=== PATIENT | female | born 1950 | race American Indian/Alaskan Native ===

== ENCOUNTER 2016-11-23 13:49 | Emergency (ER) | payer MEDICARE ==
[2016-11-23 14:01] VITALS: BP 156/99
[2016-11-23] MEDS ORDERED: NORCO 5/325 PO ONE (14:13)
[2016-11-23] MEDS ORDERED: BOOSTRIX IM ONE (14:13)
[2016-11-23] MEDS ORDERED: ANTIBIOTIC OINT TP ONE (14:17)
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
== END 2016-11-23 16:02 | disposition home or self-care (01) ==
LOC: ED 13:49
DX: T21.22XA Burn of second degree of abdominal wall, initial encounter (principal); E11.9 Type 2 diabetes mellitus without complications; I10 Essential (primary) hypertension; M19.90 Unspecified osteoarthritis, unspecified site; Z88.2 Allergy status to sulfonamides; X10.0XXA Contact with hot drinks, initial encounter; Y93.89 Activity, other specified; Y99.9 Unspecified external cause status; Y92.89 Other specified places as the place of occurrence of the external cause
CPT/HCPCS: 90471; 90715

== ENCOUNTER 2017-04-11 22:36 | Emergency (ER) | payer MEDICARE ==
[2017-04-12] MEDS ORDERED: DUONEB *Not for PRN Use IH ONE ×2 (04:34→04:50)
[2017-04-12] MEDS: DUONEB *Not for PRN Use IH ONE ×2 (04:41→06:30)
[2017-04-12] MEDS ORDERED: NORCO 5/325 ONE (04:50)
--- NOTE | 2017-04-12 05:56 | Emergency Department Report ---
Chief Complaint: Extremity Injury, Lower Stated Complaint: LT LEG PAIN Time Seen by Provider: 04/12/17 05:43 - HPI History of Present Illness: 66-year-old female past medical history obesity, chronic back pain, left hip replacement, HIV presents with complaint of acute on chronic lower back pain and worsening cough for 1 week. Patient audibly coughing loudly states it is slightly productive. Also complaining of pain and swelling in her left lower extremity which is getting progressively worse. - ROS Review of Systems: 1 week of worsening cough, left lower extremity pain and swelling - Exam Vital Signs: Vital Signs 04/12/17 00:26 Temperature 98.3 F Pulse Rate 79 Respiratory 16 Rate Blood Pressure 178/95 O2 Sat by Pulse 100 Oximetry Physical Exam: Some rhonchi on auscultation of lung maldonado MSE screening note: Focused history and physical exam performed. Due to findings the following was ordered: Screening Assessment/Plan/Differential Dx: Worsening cough, left lower extremity pain 1- This initial assessment/diagnostic orders/clinical plan/ treatment(s) is/are subject to change based on pt's health status, clinical progression and re- assessment by fellow clinical providers in the ED. Further treatment and workup at subsequent clinical provers discretion. Patient/guardians urged not to elope from ED as their condition may be serious if not clinically assessed and managed. 2-performed initial screening exam during hospital down time, was unable to chart and/or directly order labs through [facility]. Initially done on paper charting 3-chest x-ray, CBC, BMP, left lower extremity Doppler 4-pt received 1 dose of DuoNeb and a [place] ED Disposition for MSE Condition: Stable Referrals: JOHN CRAWFORD MD [Primary Care Provider] - 3-5 Days
--- NOTE | 2017-04-12 07:04 | XRay Report ---
Chest 2 views: History: Worsening cough. Findings: Normal cardiomediastinal silhouette the trachea is midline. No consolidation, pneumothorax or pleural effusion. Impression: No acute cardiopulmonary findings.
[2017-04-12] MEDS ORDERED: ZOFRAN IM ONE (11:00)
[2017-04-12 11:01] LABS: Anion Gap 19 mmol/L; BUN/Creatinine Ratio 13; Blood Urea Nitrogen 13 mg/dL (7-17); Calcium 9.4 mg/dL (8.4-10.2); Carbon Dioxide 26 mmol/L (22-30); Chloride 102.7 mmol/L (98-107); Glucose 111 mg/dL (65-100); Potassium 4.5 mmol/L (3.6-5.0); Sodium 143 mmol/L (137-145)
[2017-04-12] MEDS ORDERED: DILAUDID IM ONE (11:01)
--- NOTE | 2017-04-12 11:06 | Emergency Department Report ---
ED Extremity Problem HPI - General Chief complaint: Extremity Injury, Lower Stated complaint: LT LEG PAIN Time Seen by Provider: 04/12/17 05:43 Source: patient Mode of arrival: Ambulatory Limitations: No Limitations - History of Present Illness Initial comments: Patient is 66 years old female with history of chronic back pain came today with left thigh pain starting on one week. Grab the pain for pain increases movement improve his remaining still. Patient is also complaining of back pain which is chronic in nature. She denied any bowel or bladder incontinence. No focal motor deficit or sensory deficit in the lower extremity. MD Complaint: extremity pain -: Gradual Location: left, other (thigh) History of Same: Yes Radiation: none Improves with: immobilization Worsens with: weight bearing - Related Data Home Medications Medication Instructions Recorded Confirmed Last Taken ALPRAZolam [Xanax TAB] 2 mg PO BID PRN 05/05/15 05/05/15 Unknown Abacavir/Dolutegravir/Lamivudi 1 tab PO QDAY 05/05/15 05/05/15 05/05/15 [Triumeq (Nf)] Amlodipine Besylate [Norvasc] 5 mg PO QDAY 05/05/15 05/05/15 05/05/15 Carisoprodol [Soma] 350 mg PO BID 05/05/15 05/05/15 05/05/15 Losartan/Hydrochlorothiazide 1 tab PO QDAY 05/05/15 05/05/15 05/05/15 [Hyzaar 50-12.5 TAB] Previous Rx's Medication Instructions Recorded Last Taken Type HYDROcodone/APAP 7.5-325 [[place] 1 each PO Q8HR PRN #15 tablet 05/05/15 Unknown Rx 7.5/325] Acetaminophen/Codeine [Tylenol 1 tab PO TID PRN #20 tab 11/23/16 Unknown Rx /Codeine # 3 tab] Bacitracin Zinc Oint [Antibiotic 1 applicatio TP BID #1 tube 11/23/16 Unknown Rx Oint] Cephalexin [Keflex] 500 mg PO TID #30 capsule 11/23/16 Unknown Rx Allergies Allergy/AdvReac Type Severity Reaction Status Date / Time Sulfa (Sulfonamide Allergy Itching Verified 05/05/15 16:59 Antibiotics) ED Review of Systems ROS: Stated complaint: LT LEG PAIN Other details as noted in HPI Comment: All other systems reviewed and negative Constitutional: denies: chills, fever ENT: denies: throat pain Respiratory: denies: cough, orthopnea, shortness of breath Cardiovascular: denies: chest pain, palpitations, dyspnea on exertion Gastrointestinal: denies: abdominal pain, nausea, vomiting, hematemesis, hematochezia Musculoskeletal: back pain, myalgia. denies: joint swelling, arthralgia Neurological: denies: headache, weakness, numbness, paresthesias, confusion, abnormal gait ED Past Medical Hx - Past Medical History Previous Medical History?: Yes Hx Hypertension: Yes Hx Diabetes: Yes Hx Arthritis: Yes Hx HIV: Yes - Surgical History Past Surgical History?: Yes Additional Surgical History: hysterectomy. left hip replacement - Social History Smoking Status: Never Smoker - Medications Home Medications: Home Medications Medication Instructions Recorded Confirmed Last Taken Type ALPRAZolam [Xanax TAB] 2 mg PO BID PRN 05/05/15 05/05/15 Unknown History Abacavir/Dolutegravir/Lamivudi 1 tab PO QDAY 05/05/15 05/05/15 05/05/15 History [Triumeq (Nf)] Amlodipine Besylate [Norvasc] 5 mg PO QDAY 05/05/15 05/05/15 05/05/15 History Carisoprodol [Soma] 350 mg PO BID 05/05/15 05/05/15 05/05/15 History HYDROcodone/APAP 7.5-325 [[place] 1 each PO Q8HR PRN #15 tablet 05/05/15 Unknown Rx 7.5/325] Losartan/Hydrochlorothiazide 1 tab PO QDAY 05/05/15 05/05/15 05/05/15 History [Hyzaar 50-12.5 TAB] Acetaminophen/Codeine [Tylenol 1 tab PO TID PRN #20 tab 11/23/16 Unknown Rx /Codeine # 3 tab] Bacitracin Zinc Oint [Antibiotic 1 applicatio TP BID #1 tube 11/23/16 Unknown Rx Oint] Cephalexin [Keflex] 500 mg PO TID #30 capsule 11/23/16 Unknown Rx ED Physical Exam - General Limitations: No Limitations General appearance: alert, in no apparent distress - Head Head exam: Present: atraumatic, normocephalic - Eye Eye exam: Present: normal appearance - ENT ENT exam: Present: normal exam, mucous membranes moist - Neck Neck exam: Present: normal inspection, full ROM. Absent: tenderness, meningismus, lymphadenopathy, thyromegaly - Respiratory Respiratory exam: Present: normal lung sounds bilaterally. Absent: wheezes, rales - Cardiovascular Cardiovascular Exam: Present: regular rate, normal rhythm, normal heart sounds - GI/Abdominal GI/Abdominal exam: Present: soft, normal bowel sounds. Absent: distended, tenderness, guarding, rebound, rigid, mass, bruit, pulsatile mass, hernia - Extremities Exam Extremities exam: Present: normal inspection, full ROM, normal capillary refill - Back Exam Back exam: Present: normal inspection. Absent: CVA tenderness (R), CVA tenderness (L), muscle spasm, paraspinal tenderness, vertebral tenderness - Neurological Exam Neurological exam: Present: alert, oriented X3, CN II-XII intact, normal gait - Skin Skin exam: Present: warm, intact, normal color. Absent: dry ED Course Vital Signs 04/12/17 04/12/17 00:26 04:40 Temperature 98.3 F Pulse Rate 79 Pulse Rate [ 102 H Anterior Bilateral Throughout] Respiratory 16 Rate Respiratory 20 Rate [Anterior Bilateral Throughout] Blood Pressure 178/95 O2 Sat by Pulse 100 Oximetry - Reevaluation(s) Reevaluation #1: 04/12/17 11:05 Patient stated that she is feeling better. ED Medical Decision Making - Lab Data Result diagrams: 04/12/17 05:00 - Radiology Data Radiology results: report reviewed Left lower extremity ultrasound is negative for DVT, chest x-ray unremarkable. Critical care attestation.: If time is entered above; I have spent that time in minutes in the direct care of this critically ill patient, excluding procedure time. ED Disposition Clinical Impression: Pain of left lower extremity, Sciatica Disposition: DC-01 TO HOME OR SELFCARE Is pt being admited?: No Condition: Stable Instructions: Lumbar Radiculopathy (ED) Referrals: JOHN CRAWFORD MD [Primary Care Provider] - 3-5 Days
[2017-04-12 11:38] LABS: Hematocrit 37.6 % (30.3-42.9); Hemoglobin 12.2 gm/dl (10.1-14.3); Red Blood Count 4.29 M/mm3 (3.65-5.03)
[2017-04-12 11:39] LABS: Mean Corpuscular HGB Conc 33 % (30-34); Mean Corpuscular Hemoglobin 29 pg (28-32); Mean Corpuscular Volume 88 fl (79-97); Platelet Count 254 K/mm3 (140-440); Red Cell Distribution Width 16.8 % (13.2-15.2)
[2017-04-12 12:23] VITALS: BP 152/77
== END 2017-04-12 12:21 | disposition home or self-care (01) ==
LOC: ED 22:36
DX: M54.30 Sciatica, unspecified side (principal); M79.652 Pain in left thigh; I10 Essential (primary) hypertension; E11.9 Type 2 diabetes mellitus without complications
CPT/HCPCS: 36415; 71020; 80048; 82140; 82805; 85027; 93971; 94640; 96372; 99284; J1170; J2405

== ENCOUNTER 2017-06-22 17:05 | Emergency (ER) | payer MEDICARE | END 2017-06-22 18:02 | disposition left against medical advice (07) | LOC: ED 17:05 | DX: M54.5 Low back pain (principal); Z53.21 Procedure and treatment not carried out due to patient leaving prior to being seen by health care provider ==

== ENCOUNTER 2018-12-07 02:28 | Inpatient (IN) | payer MEDICARE ==
[2018-12-07] MEDS ORDERED: NACL 0.9% 1000 ML 1,000 ML IV ONE (02:45)
--- NOTE | 2018-12-07 02:53 | Emergency Department Report ---
ED Psych HPI - General Stated Complaint: MH EVAL/SUICIDAL Time Seen by Provider: 12/07/18 02:35 Source: patient, EMS Limitations: Altered Mental Status - History of Present Illness Initial Comments: Patient was brought to the ED after taking a handful (15-20) of trazodone 50mg pills that she had taken about 4 hours prior to arrival. Patient took the pill as a suicidal gesture, stating she just didn't want to be here anymore. history of depression. Was brought to ER via EMS, somnolent, but answers yes or no questions. MD Complaint: feels depressed - Related Data Home Medications Medication Instructions Recorded Confirmed Last Taken ALPRAZolam [Xanax TAB] 2 mg PO BID PRN 05/05/15 11/05/17 Unknown Abacavir/Dolutegravir/Lamivudi 1 tab PO QDAY 05/05/15 11/05/17 05/05/15 [Triumeq (Nf)] Amlodipine Besylate [Norvasc] 5 mg PO QDAY 05/05/15 11/05/17 05/05/15 Carisoprodol [Soma] 350 mg PO BID 05/05/15 11/05/17 05/05/15 Losartan/Hydrochlorothiazide 1 tab PO QDAY 05/05/15 11/05/17 05/05/15 [Hyzaar 50-12.5 TAB] Previous Rx's Medication Instructions Recorded Last Taken Type Aspirin [Aspirin EC] 325 mg PO DAILY #30 tablet. 11/05/17 Unknown Rx AtorvaSTATin [Lipitor] 40 mg PO QHS #30 tab 11/05/17 Unknown Rx Allergies Allergy/AdvReac Type Severity Reaction Status Date / Time Sulfa (Sulfonamide Allergy Itching Verified 05/05/15 16:59 Antibiotics) ED Review of Systems ROS: Stated complaint: MH EVAL/SUICIDAL Other details as noted in HPI Comment: All other systems reviewed and negative Eyes: denies: eye pain ENT: denies: ear pain Skin: denies: rash Neurological: denies: headache Psychiatric: anxiety, depression, suicidal thoughts ED Past Medical Hx - Past Medical History Hx Hypertension: Yes Hx Heart Attack/AMI: No Hx Congestive Heart Failure: No Hx Diabetes: Yes Hx Deep Vein Thrombosis: No Hx Liver Disease: No Hx Arthritis: Yes Hx HIV: Yes - Surgical History Hx Coronary Stent: No Hx Open Heart Surgery: No Hx Pacemaker: No Hx Internal Defibrillator: No Hx Cholecystectomy: No Hx Appendectomy: No Hx Breast Surgery: No Additional Surgical History: hysterectomy. left hip replacement - Social History Smoking Status: Never Smoker - Medications Home Medications: Home Medications Medication Instructions Recorded Confirmed Last Taken Type ALPRAZolam [Xanax TAB] 2 mg PO BID PRN 05/05/15 11/05/17 Unknown History Abacavir/Dolutegravir/Lamivudi 1 tab PO QDAY 05/05/15 11/05/17 05/05/15 History [Triumeq (Nf)] Amlodipine Besylate [Norvasc] 5 mg PO QDAY 05/05/15 11/05/17 05/05/15 History Carisoprodol [Soma] 350 mg PO BID 05/05/15 11/05/17 05/05/15 History Losartan/Hydrochlorothiazide 1 tab PO QDAY 05/05/15 11/05/17 05/05/15 History [Hyzaar 50-12.5 TAB] Aspirin [Aspirin EC] 325 mg PO DAILY #30 tablet. 11/05/17 Unknown Rx AtorvaSTATin [Lipitor] 40 mg PO QHS #30 tab 11/05/17 Unknown Rx ED Physical Exam - General Limitations: No Limitations General appearance: alert, lethargic, in distress - Head Head exam: Present: atraumatic, normocephalic - Eye Eye exam: Present: normal appearance, PERRL, EOMI Pupils: Present: normal accommodation - ENT ENT exam: Present: normal exam, normal orophraynx - Neck Neck exam: Present: normal inspection - GI/Abdominal GI/Abdominal exam: Present: soft ED Course Vital Signs 12/07/18 12/07/18 12/07/18 02:50 02:56 04:17 Temperature 98.1 F 98.3 F Pulse Rate 64 62 Respiratory 17 22 16 Rate Blood Pressure 118/56 Blood Pressure 118/85 [Right] O2 Sat by Pulse 97 98 Oximetry 12/07/18 04:21 Temperature Pulse Rate 72 Respiratory 17 Rate Blood Pressure 115/56 Blood Pressure [Right] O2 Sat by Pulse 95 Oximetry ED Medical Decision Making - Lab Data Result diagrams: 12/07/18 02:57 12/07/18 02:57 - EKG Data -: EKG Interpreted by Me EKG shows normal: sinus rhythm - EKG Data When compared to previous EKG there are: changes noted Interpretation: other (ectopic atrial, rate 68) Critical care attestation.: If time is entered above; I have spent that time in minutes in the direct care o f this critically ill patient, excluding procedure time. ED Disposition Clinical Impression: Suicidal behavior with attempted self-injury, Overdose of trazodone Disposition: OP ADMIT IP TO THIS HOSP Is pt being admited?: Yes Does the pt Need Aspirin: No Condition: Stable Referrals: ANDREW ELIZABETH [Referring] - 3-5 Days
[2018-12-07 03:14] LABS: Basophils % (Auto) 0.6 % (0.0-1.8); Eosinophils # (Auto) 0.1 K/mm3 (0.0-0.4); Eosinophils % (Auto) 1.4 % (0.0-4.3); Hematocrit 35.2 % (30.3-42.9); Hemoglobin 11.7 gm/dl (10.1-14.3); Lymphocytes # (Auto) 2.6 K/mm3 (1.2-5.4); Lymphocytes % (Auto) 36.9 % (13.4-35.0); Mean Corpuscular HGB Conc 33 % (30-34); Mean Corpuscular Volume 92 fl (79-97); Monocytes # (Auto) 0.5 K/mm3 (0.0-0.8); Platelet Count 238 K/mm3 (140-440); Red Blood Count 3.83 M/mm3 (3.65-5.03); Red Cell Distribution Width 17.2 % (13.2-15.2)
[2018-12-07 03:37] LABS: Albumin 3.6 g/dL (3.9-5); Calcium 8.2 mg/dL (8.4-10.2)
[2018-12-07 04:22] LABS: Amphetamine Screen,Urine PRESUMPTIVE NEGATIVE; Benzodiazepines Screen,Urine PRESUMPTIVE NEGATIVE; Cannabinoid Screen,Urine PRESUMPTIVE NEGATIVE; Cocaine Screen,Urine PRESUMPTIVE NEGATIVE; Methadone Screen,Urine PRESUMPTIVE NEGATIVE; Opiate Screen,Urine PRESUMPTIVE NEGATIVE
[2018-12-07 04:24] LABS: Bacteria,Urine 1+ /HPF (Negative); Bilirubin,Urine NEG (Negative); Blood,Urine NEG (Negative); Color,Urine Straw (Yellow); Hyaline Casts,Urine 17 /LPF; Mucus,Urine FEW /HPF; Protein,Urine <15 mg/dL mg/dL (Negative); Urobilinogen,Urine < 2.0 mg/dL (<2.0)
--- NOTE | 2018-12-07 05:26 | History and Physical Report ---
<KIET OCONNELL - Last Filed: 12/07/18 06:37> History of Present Illness Date of examination: 12/07/18 Date of admission: 12/07/2018 Chief complaint: Suicidal attempt History of present illness: Patient is a 68-year-old female with PMHx of DM type II, hypertension, HIV infection, obesity, depression who was brought to the ER by EMS for taking (15- 20) 50mg of Trazodone, about 4 hours prior to arrival. Per EMS pt took the pills in a suicidal attempt, she states that she didn't want to be here anymore per family. On arrival to the ER patient was somnolent, but was able to answers to questions. On admission patient was somnolent but easily arousable, she was able to provide medical history and list her medications. When asked if she wanted to commit suicide, she reply no, psychiatry was consulted for evaluation, pt was placed in 1013 and admitted for further monitoring. Past History Past Medical History: diabetes, hypertension, other (obesity, depression) Past Surgical History: hysterectomy, total hip replacement Social history: other (denies cigarette smoking) Family history: no significant family history Medications and Allergies Allergies Allergy/AdvReac Type Severity Reaction Status Date / Time Sulfa (Sulfonamide Allergy Itching Verified 05/05/15 16:59 Antibiotics) Home Medications Medication Instructions Recorded Confirmed Last Taken Type Abacavir/Dolutegravir/Lamivudi 1 tab PO QDAY 05/05/15 12/08/18 12/07/18 History [Triumeq (Nf)] Abacavir/Dolutegravir/Lamivudi 1 tab PO DAILY 12/07/18 12/09/18 12/08/18 History [Triumeq 600-50-300 mg Tablet] Losartan-Hctz 100-25 mg Tab 100 mg PO DAILY 12/07/18 12/07/18 1 Day Ago History ~12/06/18 glipiZIDE [Glucotrol] 5 mg PO QHS 12/07/18 12/07/18 1 Day Ago History ~12/06/18 AtorvaSTATin [Lipitor] 40 mg PO QHS tablet 12/10/18 Unknown Rx amLODIPine [Norvasc] 10 mg PO DAILY #30 tab 12/10/18 Unknown Rx Review of Systems All systems: negative Exam - Constitutional Vitals: Temp Pulse Resp BP Pulse Ox 98.3 F 72 17 115/56 95 12/07/18 02:56 12/07/18 04:21 12/07/18 04:21 12/07/18 04:21 12/07/18 04:21 General appearance: Present: no acute distress - EENT Eyes: Present: EOM intact ENT: hearing intact - Neck Neck: Present: normal ROM - Respiratory Respiratory effort: normal Respiratory: bilateral: CTA - Cardiovascular Heart Sounds: Present: S1 & S2 - Extremities Extremities: no ischemia, No edema Peripheral Pulses: within normal limits - Abdominal General gastrointestinal: Present: non-tender, non-distended Female genitourinary: Present: deferred - Rectal Rectal Exam: deferred - Integumentary Integumentary: Present: warm, dry - Musculoskeletal Musculoskeletal: strength equal bilaterally - Psychiatric Psychiatric: cooperative - Neurologic Neurologic: moves all extremities Results - Labs CBC & Chem 7: 12/07/18 02:57 12/07/18 02:57 Labs: Laboratory Last Values WBC 7.1 K/mm3 (4.5-11.0) 12/07/18 02:57 RBC 3.83 M/mm3 (3.65-5.03) 12/07/18 02:57 Hgb 11.7 gm/dl (10.1-14.3) 12/07/18 02:57 Hct 35.2 % (30.3-42.9) 12/07/18 02:57 MCV 92 fl (79-97) 12/07/18 02:57 MCH 31 pg (28-32) 12/07/18 02:57 MCHC 33 % (30-34) 12/07/18 02:57 RDW 17.2 % (13.2-15.2) H 12/07/18 02:57 Plt Count 238 K/mm3 (140-440) 12/07/18 02:57 Lymph % (Auto) 36.9 % (13.4-35.0) H 12/07/18 02:57 [place] % (Auto) 7.0 % (0.0-7.3) 12/07/18 02:57 Eos % (Auto) 1.4 % (0.0-4.3) 12/07/18 02:57 Baso % (Auto) 0.6 % (0.0-1.8) 12/07/18 02:57 Lymph # 2.6 K/mm3 (1.2-5.4) 12/07/18 02:57 [place] # 0.5 K/mm3 (0.0-0.8) 12/07/18 02:57 Eos # 0.1 K/mm3 (0.0-0.4) 12/07/18 02:57 Baso # 0.0 K/mm3 (0.0-0.1) 12/07/18 02:57 Seg Neutrophils % 54.1 % (40.0-70.0) 12/07/18 02:57 Seg Neutrophils # 3.8 K/mm3 (1.8-7.7) 12/07/18 02:57 Sodium 137 mmol/L (137-145) 12/07/18 02:57 Potassium 3.3 mmol/L (3.6-5.0) L 12/07/18 02:57 Chloride 98.3 mmol/L (98-107) 12/07/18 02:57 Carbon Dioxide 27 mmol/L (22-30) 12/07/18 02:57 15 mmol/L 12/07/18 02:57 BUN 16 mg/dL (7-17) 12/07/18 02:57 1.3 mg/dL (0.7-1.2) H 12/07/18 02:57 Estimated GFR 49 ml/min 12/07/18 02:57 12 % 12/07/18 02:57 Glucose 119 mg/dL (65-100) H 12/07/18 02:57 Calcium 8.2 mg/dL (8.4-10.2) L 12/07/18 02:57 0.20 mg/dL (0.1-1.2) 12/07/18 02:57 AST 20 units/L (5-40) 12/07/18 02:57 ALT 18 units/L (7-56) 12/07/18 02:57 78 units/L (35-129) 12/07/18 02:57 6.3 g/dL (6.3-8.2) 12/07/18 02:57 3.6 g/dL (3.9-5) L 12/07/18 02:57 1.3 % 12/07/18 02:57 Straw (Yellow) 12/07/18 03:56 Clear (Clear) 12/07/18 03:56 5.0 (5.0-7.0) 12/07/18 03:56 Ur Specific [place] 1.006 (1.003-1.030) 12/07/18 03:56 <15 mg/dl mg/dL (Negative) 12/07/18 03:56 Neg mg/dL (Negative) 12/07/18 03:56 Neg mg/dL (Negative) 12/07/18 03:56 Neg (Negative) 12/07/18 03:56 Neg (Negative) 12/07/18 03:56 Neg (Negative) 12/07/18 03:56 < 2.0 mg/dL (<2.0) 12/07/18 03:56 Ur Leukocyte Esterase Neg (Negative) 12/07/18 03:56 1.0 /HPF (0.0-6.0) 12/07/18 03:56 3.0 /HPF (0.0-6.0) 12/07/18 03:56 U Epithel Cells (Auto) 1.0 /HPF (0-13.0) 12/07/18 03:56 1+ /HPF (Negative) 12/07/18 03:56 Hyaline Casts 17 /LPF 12/07/18 03:56 Few /HPF 12/07/18 03:56 Salicylates < 0.3 mg/dL (2.8-20.0) L 12/07/18 02:57 Presumptive negative 12/07/18 03:56 Presumptive negative 12/07/18 03:56 Acetaminophen < 5.0 ug/mL (10.0-30.0) L 12/07/18 02:57 Ur Barbiturates Screen Presumptive negative 12/07/18 03:56 Ur Phencyclidine Scrn Presumptive negative 12/07/18 03:56 Ur Amphetamines Screen Presumptive negative 12/07/18 03:56 U Benzodiazepines Scrn Presumptive negative 12/07/18 03:56 [place] 0.1 mmol/L (0.0-1.2) 12/07/18 02:57 Presumptive negative 12/07/18 03:56 U Marijuana (THC) Screen Presumptive negative 12/07/18 03:56 Disclamer 12/07/18 03:56 Plasma/Serum Alcohol 0.17 % (0-0.07) H 12/07/18 02:57 Assessment and Plan Assessment and plan: 1. Suicidal attempt 2. Hypokalemia 3. Major depression 4. HIV infection (on HAART, viral load, CD4 unknown) 5. Control DM type II 6. Hypertension 7. Obesity Plan: Patient is admitted for suicidal attempt Continue one-on-one monitoring Psych consult for evaluation Glycemic management per protocol Further plan per hospital course and psychiatry recommendations Advance Directives: Yes VTE prophylaxis?: Chemical Plan of care discussed with patient/family: Yes <RIP AGUAYO - Last Filed: 12/20/18 18:59> History of Present Illness Date of admission: 12/07/18 04:58 Exam - Constitutional Vitals: Temp Pulse Resp BP Pulse Ox 98.0 F 78 20 145/73 95 12/10/18 12:27 12/10/18 14:22 12/10/18 12:27 12/10/18 14:22 12/10/18 12:27 Results - Labs CBC & Chem 7: 12/09/18 04:33 12/10/18 09:02 Labs: Laboratory Last Values WBC 5.9 K/mm3 (4.5-11.0) 12/09/18 04:33 RBC 3.70 M/mm3 (3.65-5.03) 12/09/18 04:33 Hgb 11.3 gm/dl (10.1-14.3) 12/09/18 04:33 Hct 34.0 % (30.3-42.9) 12/09/18 04:33 MCV 92 fl (79-97) 12/09/18 04:33 MCH 31 pg (28-32) 12/09/18 04:33 MCHC 33 % (30-34) 12/09/18 04:33 RDW 17.2 % (13.2-15.2) H 12/09/18 04:33 Plt Count 228 K/mm3 (140-440) 12/09/18 04:33 Lymph % (Auto) 37.8 % (13.4-35.0) H 12/09/18 04:33 Henry % (Auto) 7.3 % (0.0-7.3) 12/09/18 04:33 Eos % (Auto) 1.5 % (0.0-4.3) 12/09/18 04:33 Baso % (Auto) 0.2 % (0.0-1.8) 12/09/18 04:33 Lymph # 2.2 K/mm3 (1.2-5.4) 12/09/18 04:33 [place] # 0.4 K/mm3 (0.0-0.8) 12/09/18 04:33 Eos # 0.1 K/mm3 (0.0-0.4) 12/09/18 04:33 Baso # 0.0 K/mm3 (0.0-0.1) 12/09/18 04:33 Seg Neutrophils % 53.2 % (40.0-70.0) 12/09/18 04:33 Seg Neutrophils # 3.1 K/mm3 (1.8-7.7) 12/09/18 04:33 Sodium 142 mmol/L (137-145) 12/10/18 09:02 Potassium 3.9 mmol/L (3.6-5.0) 12/10/18 09:02 Chloride 101.7 mmol/L (98-107) 12/10/18 09:02 Carbon Dioxide 29 mmol/L (22-30) 12/10/18 09:02 15 mmol/L 12/10/18 09:02 BUN 11 mg/dL (7-17) 12/10/18 09:02 1.0 mg/dL (0.7-1.2) 12/10/18 09:02 Estimated GFR > 60 ml/min 12/10/18 09:02 11 % 12/10/18 09:02 Glucose 109 mg/dL (65-100) H 12/10/18 09:02 POC Glucose 116 (70-105) H 12/10/18 11:39 Calcium 9.5 mg/dL (8.4-10.2) 12/10/18 09:02 Phosphorus 3.80 mg/dL (2.5-4.5) 12/10/18 09:02 Magnesium 1.80 mg/dL (1.7-2.3) 12/10/18 09:02 0.20 mg/dL (0.1-1.2) 12/07/18 02:57 AST 20 units/L (5-40) 12/07/18 02:57 ALT 18 units/L (7-56) 12/07/18 02:57 78 units/L (35-129) 12/07/18 02:57 6.3 g/dL (6.3-8.2) 12/07/18 02:57 3.6 g/dL (3.9-5) L 12/07/18 02:57 1.3 % 12/07/18 02:57 Straw (Yellow) 12/07/18 03:56 Clear (Clear) 12/07/18 03:56 5.0 (5.0-7.0) 12/07/18 03:56 Ur Specific [place] 1.006 (1.003-1.030) 12/07/18 03:56 <15 mg/dl mg/dL (Negative) 12/07/18 03:56 Neg mg/dL (Negative) 12/07/18 03:56 Neg mg/dL (Negative) 12/07/18 03:56 Neg (Negative) 12/07/18 03:56 Neg (Negative) 12/07/18 03:56 Neg (Negative) 12/07/18 03:56 < 2.0 mg/dL (<2.0) 12/07/18 03:56 Ur Leukocyte Esterase Neg (Negative) 12/07/18 03:56 1.0 /HPF (0.0-6.0) 12/07/18 03:56 3.0 /HPF (0.0-6.0) 12/07/18 03:56 U Epithel Cells (Auto) 1.0 /HPF (0-13.0) 12/07/18 03:56 1+ /HPF (Negative) 12/07/18 03:56 Hyaline Casts 17 /LPF 12/07/18 03:56 Few /HPF 12/07/18 03:56 Salicylates < 0.3 mg/dL (2.8-20.0) L 12/07/18 02:57 Presumptive negative 12/07/18 03:56 Presumptive negative 12/07/18 03:56 Acetaminophen < 5.0 ug/mL (10.0-30.0) L 12/07/18 02:57 Ur Barbiturates Screen Presumptive negative 12/07/18 03:56 Ur Phencyclidine Scrn Presumptive negative 07/13/19 03:56 Ur Amphetamines Screen Presumptive negative 12/07/18 03:56 U Benzodiazepines Scrn Presumptive negative 12/07/18 03:56 [place] 0.1 mmol/L (0.0-1.2) 12/07/18 02:57 Presumptive negative 12/07/18 03:56 U Marijuana (THC) Screen Presumptive negative 12/07/18 03:56 Disclamer 12/07/18 03:56 Plasma/Serum Alcohol 0.17 % (0-0.07) H 12/07/18 02:57 Assessment and Plan Assessment and plan: I personally discussed the patient with the JUDGE'S CLERK-C, I agree with the above documentations.
[2018-12-07] MEDS ORDERED: TYLENOL PO PRN (05:28)
[2018-12-07] MEDS ORDERED: REGLAN IV PRN (05:28)
[2018-12-07] MEDS ORDERED: MILK OF MAGNESIA PO PRN (05:28)
[2018-12-07] MEDS ORDERED: SODIUM CHLORIDE FLUSH SYRINGE 10 ML IV PRN (05:28)
[2018-12-07] MEDS ORDERED: ZOFRAN IV PRN (05:28)
[2018-12-07] MEDS ORDERED: D50W (25GM) Syringe IV PRN (06:55)
[2018-12-07] MEDS: HumuLIN R SUB-Q SCH ×3 (08:00→16:53)
--- NOTE | 2018-12-07 09:08 | Event Note ---
Date: 12/07/18 This is a follow-up from an admission earlier this morning. Chart reviewed. We will continue plan as outlined in H&P.
[2018-12-07] MEDS: SODIUM CHLORIDE FLUSH SYRINGE 10 ML IV SCH ×2 (13:49→22:01)
--- NOTE | 2018-12-07 18:53 | Consultation ---
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 She states her daughter found her with a mouthful of pills. She denies any history of mental health treatment by a psychiatrist or therapist. She denies a history of suicidal ideation or attempt but states that she has been referred to a psychiatrist but was never evaluated. She is presc ribed trazodone by her PCP for anxiety/insomnia. She reports stressors of needing money to pay probation. She was diagnosed with HIV 3 years ago and says this bothers her often. "I have good days and bad days." She states that she has been depressed for some time. She admits being intoxicated at the time of her attempt. She denies use of drugs or regular/ daily alcohol use but does not provide any detail regarding her consumption. UDS is negative, BAL=0.17.] Medications and Allergies Allergies Allergy/AdvReac Type Severity Reaction Status Date / Time Sulfa (Sulfonamide Allergy Itching Verified 05/05/15 16:59 Antibiotics) Home Medications Medication Instructions Recorded Confirmed Last Taken Type Abacavir/Dolutegravir/Lamivudi 1 tab PO QDAY 05/05/15 12/07/18 12/07/18 History [Triumeq (Nf)] Amlodipine Besylate [Norvasc] 5 mg PO QDAY 05/05/15 12/07/18 1 Day Ago History ~12/06/18 AtorvaSTATin [Lipitor] 40 mg PO QHS #30 tab 11/05/17 1 Day Ago Rx ~12/06/18 Abacavir/Dolutegravir/Lamivudi 1 PO DAILY 12/07/18 12/07/18 History [Triumeq 600-50-300 mg Tablet] Losartan-Hctz 100-25 mg Tab 100 mg PO DAILY 12/07/18 12/07/18 1 Day Ago History ~12/06/18 glipiZIDE [Glucotrol] 5 mg PO QHS 12/07/18 12/07/18 1 Day Ago History ~12/06/18 Active Meds: Active Medications Acetaminophen (Tylenol) 650 mg PO Q4H PRN PRN Reason: Pain MILD(1-3)/Fever >100.5/BLUE Dextrose (D50w (25gm) Syringe) 50 ml IV PRN PRN PRN Reason: Hypoglycemia Insulin Human Regular (Humulin R) 0 units SUB-Q ACHS DEQUAN; Protocol Last Admin: 12/07/18 16:53 Dose: Not Given Documented by: Magnesium Hydroxide (Milk Of Magnesia) 30 ml PO Q4H PRN PRN Reason: Constipation Metoclopramide HCl (Reglan) 10 mg IV Q6H PRN PRN Reason: Nausea And Vomiting Ondansetron HCl (Zofran) 4 mg IV Q8H PRN PRN Reason: Nausea And Vomiting Sodium Chloride (Sodium Chloride Flush Syringe 10 Ml) 10 ml IV BID [facility] Last Admin: 12/07/18 13:49 Dose: 10 ml Documented by: Sodium Chloride (Sodium Chloride Flush Syringe 10 Ml) 10 ml IV PRN PRN PRN Reason: LINE FLUSH Past psychiatric history - Past Medical History Past Medical History: HIV/AIDS - past Psychiatric treatment and history psychiatric treatment history: trazodone prescribed for anxiety/insomnia no ongoing psychiatric care no previous attempts - Social History Social history: lives with family (daughter, son in law, and grandkids) Mental Status Exam - Vital signs Last Vital Signs Temp 98.6 F 12/07/18 17:52 Pulse 83 12/07/18 17:52 Resp 22 12/07/18 17:52 BP 154/63 12/07/18 17:52 Pulse Ox 96 12/07/18 17:52 - Exam Orientation: time, place, person Affect: depressed Mood: congruent with affect Thought content: other (suicide attempt, remorseful. no HI) Thought Process: Intact Perceptions: none Speech: normal rate and pattern Concentration: focused Motor activity: normal Level of consciousness: alert Memory: Intact Sleep Symptoms: Difficulty Falling Asleep Appetite: decreased Interaction: guarded Results Result Diagrams: 12/07/18 02:57 12/07/18 02:57 Abnormal lab results 12/07/18 12/07/18 12/07/18 Range/Units 02:57 02:57 02:57 RDW 17.2 H (13.2-15.2) % Lymph % (Auto) 36.9 H (13.4-35.0) % Potassium 3.3 L (3.6-5.0) mmol/L Creatinine 1.3 H (0.7-1.2) mg/dL Glucose 119 H (65-100) mg/dL POC Glucose (70-105) Calcium 8.2 L (8.4-10.2) mg/dL Albumin 3.6 L (3.9-5) g/dL Salicylates < 0.3 L (2.8-20.0) mg/dL Acetaminophen (10.0-30.0) ug/mL Plasma/Serum Alcohol (0-0.07) % 12/07/18 12/07/18 12/07/18 Range/Units 02:57 02:57 12:20 RDW (13.2-15.2) % Lymph % (Auto) (13.4-35.0) % Potassium (3.6-5.0) mmol/L Creatinine (0.7-1.2) mg/dL Glucose (65-100) mg/dL POC Glucose 120 H (70-105) Calcium (8.4-10.2) mg/dL Albumin (3.9-5) g/dL Salicylates (2.8-20.0) mg/dL Acetaminophen < 5.0 L (10.0-30.0) ug/mL Plasma/Serum Alcohol 0.17 H (0-0.07) % All other labs normal. Assessment and Plan Assessment and plan: Impression: suicide attempt via overdose on - trazodone 50mg major depressive disorder, severe, without psychotic features anxiety disorder unspecified BAL of 0.17 at time of SA denies daily use of alcohol r/o alcohol use d/o Recommendations: hold meds for mental health we discussed standard of care for MDD and standard of care following SA, to include inpatient psychiatric treatment dispo: continue 1013 and transfer to inpatient psych when medically cleared staffed with Dr. Perez
[2018-12-07] MEDS ORDERED: ABACAVIR PO SCH ×2 (21:15)
[2018-12-07] MEDS ORDERED: LAMIVUDI PO SCH ×2 (21:15)
[2018-12-07] MEDS ORDERED: DOLUTEGRAVIR PO SCH ×2 (21:15)
[2018-12-07] MEDS: NORVASC PO SCH (21:57)
[2018-12-07] MEDS: COZAAR PO SCH (22:00)
[2018-12-07] MEDS ORDERED: K-DUR PO ONE (22:00)
[2018-12-08] MEDS: HumuLIN R SUB-Q SCH ×5 (01:12→22:01)
[2018-12-08] MEDS: NORVASC PO SCH (09:27)
[2018-12-08] MEDS: COZAAR PO SCH (09:27)
[2018-12-08] MEDS: HCTZ PO SCH (09:27)
[2018-12-08] MEDS: SODIUM CHLORIDE FLUSH SYRINGE 10 ML IV SCH ×2 (09:28→21:56)
--- NOTE | 2018-12-08 11:55 | Progress Note ---
Assessment and Plan Assessment and plan: Suicide attempt. Continue per psychiatry. Overdose on 15-20 trazodone 50mg. Continue 1013 and transfer to inpatient psych Hypokalemia. Repleted potassium. Follow BMP. Major depression. HIV. Diabetes mellitus type 2. Accu-Cheks and sliding scale insulin. Hypertension. Continue medications. Obesity. Patient will be counseled on diet, exercise and lifestyle modifications. History Interval history: No new issues overnight. Hospitalist Physical - Constitutional Vitals: Temp Pulse Resp BP Pulse Ox 98.2 F 62 18 165/75 100 12/08/18 08:39 12/08/18 09:27 12/08/18 08:39 12/08/18 09:27 12/08/18 08:39 General appearance: Present: no acute distress - EENT Eyes: Present: PERRL, EOM intact ENT: hearing intact, clear oral mucosa, dentition normal - Neck Neck: Present: supple, normal ROM - Respiratory Respiratory effort: normal Respiratory: bilateral: CTA - Cardiovascular Rhythm: regular Heart Sounds: Present: S1 & S2. Absent: gallop, rub - Extremities Extremities: no ischemia, No edema, Full ROM - Abdominal General gastrointestinal: soft, non-tender, non-distended, normal bowel sounds - Integumentary Integumentary: Present: clear, warm, dry - Neurologic Neurologic: CNII-XII intact, moves all extremities Results - Labs CBC & Chem 7: 12/07/18 02:57 12/07/18 02:57 Labs: Laboratory Last Values WBC 7.1 K/mm3 (4.5-11.0) 12/07/18 02:57 RBC 3.83 M/mm3 (3.65-5.03) 12/07/18 02:57 Hgb 11.7 gm/dl (10.1-14.3) 12/07/18 02:57 Hct 35.2 % (30.3-42.9) 12/07/18 02:57 MCV 92 fl (79-97) 12/07/18 02:57 MCH 31 pg (28-32) 12/07/18 02:57 MCHC 33 % (30-34) 12/07/18 02:57 RDW 17.2 % (13.2-15.2) H 12/07/18 02:57 Plt Count 238 K/mm3 (140-440) 12/07/18 02:57 Lymph % (Auto) 36.9 % (13.4-35.0) H 12/07/18 02:57 [place] % (Auto) 7.0 % (0.0-7.3) 12/07/18 02:57 Eos % (Auto) 1.4 % (0.0-4.3) 12/07/18 02:57 Baso % (Auto) 0.6 % (0.0-1.8) 12/07/18 02:57 Lymph # 2.6 K/mm3 (1.2-5.4) 12/07/18 02:57 [place] # 0.5 K/mm3 (0.0-0.8) 12/07/18 02:57 Eos # 0.1 K/mm3 (0.0-0.4) 12/07/18 02:57 Baso # 0.0 K/mm3 (0.0-0.1) 12/07/18 02:57 Seg Neutrophils % 54.1 % (40.0-70.0) 12/07/18 02:57 Seg Neutrophils # 3.8 K/mm3 (1.8-7.7) 12/07/18 02:57 Sodium 137 mmol/L (137-145) 12/07/18 02:57 Potassium 3.3 mmol/L (3.6-5.0) L 12/07/18 02:57 Chloride 98.3 mmol/L (98-107) 12/07/18 02:57 Carbon Dioxide 27 mmol/L (22-30) 12/07/18 02:57 15 mmol/L 12/07/18 02:57 BUN 16 mg/dL (7-17) 12/07/18 02:57 1.3 mg/dL (0.7-1.2) H 12/07/18 02:57 Estimated GFR 49 ml/min 12/07/18 02:57 12 % 12/07/18 02:57 Glucose 119 mg/dL (65-100) H 12/07/18 02:57 POC Glucose 121 (70-105) H 12/08/18 08:57 Calcium 8.2 mg/dL (8.4-10.2) L 12/07/18 02:57 0.20 mg/dL (0.1-1.2) 12/07/18 02:57 AST 20 units/L (5-40) 12/07/18 02:57 ALT 18 units/L (7-56) 12/07/18 02:57 78 units/L (35-129) 12/07/18 02:57 6.3 g/dL (6.3-8.2) 12/07/18 02:57 3.6 g/dL (3.9-5) L 12/07/18 02:57 1.3 % 12/07/18 02:57 Straw (Yellow) 12/07/18 03:56 Clear (Clear) 12/07/18 03:56 5.0 (5.0-7.0) 12/07/18 03:56 Ur Specific [place] 1.006 (1.003-1.030) 12/07/18 03:56 <15 mg/dl mg/dL (Negative) 12/07/18 03:56 Neg mg/dL (Negative) 12/07/18 03:56 Neg mg/dL (Negative) 12/07/18 03:56 Neg (Negative) 12/07/18 03:56 Neg (Negative) 12/07/18 03:56 Neg (Negative) 12/07/18 03:56 < 2.0 mg/dL (<2.0) 12/07/18 03:56 Ur Leukocyte Esterase Neg (Negative) 12/07/18 03:56 1.0 /HPF (0.0-6.0) 12/07/18 03:56 3.0 /HPF (0.0-6.0) 12/07/18 03:56 U Epithel Cells (Auto) 1.0 /HPF (0-13.0) 12/07/18 03:56 1+ /HPF (Negative) 12/07/18 03:56 Hyaline Casts 17 /LPF 12/07/18 03:56 Few /HPF 12/07/18 03:56 Salicylates < 0.3 mg/dL (2.8-20.0) L 12/07/18 02:57 Presumptive negative 12/07/18 03:56 Presumptive negative 12/07/18 03:56 Acetaminophen < 5.0 ug/mL (10.0-30.0) L 12/07/18 02:57 Ur Barbiturates Screen Presumptive negative 12/07/18 03:56 Ur Phencyclidine Scrn Presumptive negative 12/07/18 03:56 Ur Amphetamines Screen Presumptive negative 12/07/18 03:56 U Benzodiazepines Scrn Presumptive negative 12/07/18 03:56 [place] 0.1 mmol/L (0.0-1.2) 12/07/18 02:57 Presumptive negative 12/07/18 03:56 U Marijuana (THC) Screen Presumptive negative 12/07/18 03:56 Disclamer 12/07/18 03:56 Plasma/Serum Alcohol 0.17 % (0-0.07) H 12/07/18 02:57 Active Medications - Current Medications Current Medications: Generic Name Dose Route Start Last Admin Trade Name Freq PRN Reason Stop Dose Admin Acetaminophen 650 mg 12/07/18 05:28 Tylenol PO Q4H PRN Pain MILD(1-3)/Fever >100.5/BLUE Amlodipine Besylate 5 mg 12/07/18 21:15 12/08/18 09:27 Norvasc PO 5 mg QDAY [facility] Administration Atorvastatin Calcium 40 mg 12/07/18 22:00 12/07/18 21:57 Lipitor PO 40 mg QHS DEQUAN Administration Dextrose 50 ml 12/07/18 06:55 D50w (25gm) Syringe IV PRN PRN Hypoglycemia Hydrochlorothiazide 25 mg 12/08/18 10:00 12/08/18 09:27 Hctz PO 25 mg QDAY DEQUAN Administration Insulin Human Regular 0 units 12/07/18 07:30 12/08/18 08:08 Humulin R SUB-Q Not Given ACHS [facility] Protocol Losartan Potassium 100 mg 12/07/18 21:15 12/08/18 09:27 Cozaar PO 100 mg DAILY DEQUAN Administration Magnesium Hydroxide 30 ml 12/07/18 05:28 Milk Of Magnesia PO Q4H PRN Constipation Metoclopramide HCl 10 mg 12/07/18 05:28 Reglan IV Q6H PRN Nausea And Vomiting Miscellaneous Medication 1 cap 12/07/18 21:15 Abacavir/Dolutegravir/Lamivudi [Triumeq 600-50-300 Mg Tablet] PO DAILY [facility] Ondansetron HCl 4 mg 12/07/18 05:28 Zofran IV Q8H PRN Nausea And Vomiting Sodium Chloride 10 ml 12/07/18 10:00 07/14/19 09:28 Sodium Chloride Flush Syringe 10 Ml IV 10 ml BID DEQUAN Administration Sodium Chloride 10 ml 12/07/18 05:28 Sodium Chloride Flush Syringe 10 Ml IV PRN PRN LINE FLUSH Nutrition/Malnutrition Assess - Dietary Evaluation Nutrition/Malnutrition Findings: Nutrition Notes Start: 12/07/18 12:49 Freq: Status: Active Protocol: Document 12/07/18 12:49 SONIA (Rec: 12/07/18 12:52 SONIA [email or web address] [email or web address]) Nutrition Notes Need for Assessment generated from: MD Order,Education Initial or Follow up Brief Note Current Diagnosis Diabetes,Hypertension Other Pertinent Diagnosis Suicide attempt, Depression, HIV Current Diet Cardiac Labs/Tests K 3.3 Cr 1.3 Pertinent Medications reviewed Subjective/Other Information RD consulted for diet education. BP is WNL and BS range 105-120 since admission. Nutrition Intervention Follow-Up By: 12/11/18 Additional Comments F/U: intakes
[2018-12-08] MEDS: TIVICAY PO SCH (14:26)
[2018-12-08] MEDS: ZIAGEN PO SCH (14:27)
[2018-12-08] MEDS: EPIVIR PO SCH (14:28)
--- NOTE | 2018-12-08 19:18 | Progress Note ---
Subjective - Reason for Consult Consult date: 12/08/18 Reason for consult: follow up - Chief Complaint Chief complaint: Suicidal attempt via overdose "I'm doing much better." 68 year old female brought in by EMS status post suicide attempt via overdose of approx 15-20x Trazodone 50mg. She states her daughter found her with a mouthful of pills. She states she is in good spirits. She talked with her family today and says they are very supportive. She does not think she needs to go to inpatient. She is remorseful of her attempt. She denies SI/HI/AVH. Mental Status Exam - Vital signs Last Vital Signs Temp 98.2 F 12/08/18 16:43 Pulse 65 12/08/18 16:43 Resp 18 12/08/18 16:43 BP 156/52 12/08/18 16:43 Pulse Ox 97 12/08/18 16:43 - Exam Narrative exam: Orientation: time, place, person Affect: depressed Mood: congruent with affect Thought content: other (denies SI, remorseful. no HI) Thought Process: Intact Perceptions: none Speech: normal rate and pattern Concentration: focused Motor activity: normal Level of consciousness: alert Memory: Intact Sleep Symptoms: Difficulty Falling Asleep Appetite: decreased Interaction: guarded Assessment and Plan Impression: suicide attempt via overdose on 15-20 trazodone 50mg major depressive disorder, severe, without psychotic features anxiety disorder unspecified BAL of 0.17 at time of SA denies daily use of alcohol r/o alcohol use d/o Recommendations: hold meds for mental health. consider SSRI we discussed standard of care for MDD and standard of care following SA, to include inpatient psychiatric treatment dispo: continue 1013 and transfer to inpatient psych when medically cleared staffed with Dr. Perez
[2018-12-08] MEDS ORDERED: APRESOLINE IV PRN (23:00)
[2018-12-09 05:58] LABS: Basophils % (Auto) 0.2 % (0.0-1.8); Eosinophils # (Auto) 0.1 K/mm3 (0.0-0.4); Eosinophils % (Auto) 1.5 % (0.0-4.3); Hemoglobin 11.3 gm/dl (10.1-14.3); Lymphocytes # (Auto) 2.2 K/mm3 (1.2-5.4); Lymphocytes % (Auto) 37.8 % (13.4-35.0); Mean Corpuscular HGB Conc 33 % (30-34); Mean Corpuscular Volume 92 fl (79-97); Monocytes # (Auto) 0.4 K/mm3 (0.0-0.8); Monocytes % (Auto) 7.3 % (0.0-7.3); Platelet Count 228 K/mm3 (140-440); Red Cell Distribution Width 17.2 % (13.2-15.2)
[2018-12-09 06:17] LABS: BUN/Creatinine Ratio 10; Blood Urea Nitrogen 8 mg/dL (7-17); Calcium 8.9 mg/dL (8.4-10.2); Hemolysis Index 10
[2018-12-09] MEDS: HumuLIN R SUB-Q SCH ×4 (09:54→21:28)
[2018-12-09] MEDS: COZAAR PO SCH (09:56)
[2018-12-09] MEDS: HCTZ PO SCH (09:56)
[2018-12-09] MEDS: NORVASC PO SCH (09:56)
[2018-12-09] MEDS: EPIVIR PO SCH (09:57)
[2018-12-09] MEDS: ZIAGEN PO SCH (09:57)
[2018-12-09] MEDS: TIVICAY PO SCH (09:57)
[2018-12-09] MEDS: SODIUM CHLORIDE FLUSH SYRINGE 10 ML IV SCH ×2 (10:23→21:29)
--- NOTE | 2018-12-09 10:47 | Progress Note ---
Assessment and Plan Assessment and plan: Suicide attempt. Continue per psychiatry. Overdose on 15-20 trazodone 50mg. Continue 1013 and transfer to inpatient psych per psychiatrist recommendations Hypokalemia. Repleted potassium. Follow BMP. Major depression. HIV. Diabetes mellitus type 2. Accu-Cheks and sliding scale insulin. Hypertension. Continue medications. Obesity. Patient will be counseled on diet, exercise and lifestyle modifications. History Interval history: No new issues overnight. Hospitalist Physical - Constitutional Vitals: Temp Pulse Resp BP Pulse Ox 98.1 F 69 17 139/55 97 12/09/18 04:25 12/09/18 09:56 12/09/18 04:25 12/09/18 09:56 12/09/18 04:25 General appearance: Present: no acute distress - EENT Eyes: Present: PERRL, EOM intact ENT: hearing intact, clear oral mucosa, dentition normal - Neck Neck: Present: supple, normal ROM - Respiratory Respiratory effort: normal Respiratory: bilateral: CTA - Cardiovascular Rhythm: regular Heart Sounds: Present: S1 & S2. Absent: gallop, rub - Extremities Extremities: no ischemia, No edema, Full ROM - Abdominal General gastrointestinal: soft, non-tender, non-distended, normal bowel sounds - Integumentary Integumentary: Present: clear, warm, dry - Neurologic Neurologic: CNII-XII intact, moves all extremities Results - Labs CBC & Chem 7: 12/09/18 04:33 12/09/18 04:33 Labs: Laboratory Last Values WBC 5.9 K/mm3 (4.5-11.0) 12/09/18 04:33 RBC 3.70 M/mm3 (3.65-5.03) 12/09/18 04:33 Hgb 11.3 gm/dl (10.1-14.3) 12/09/18 04:33 Hct 34.0 % (30.3-42.9) 12/09/18 04:33 MCV 92 fl (79-97) 12/09/18 04:33 MCH 31 pg (28-32) 12/09/18 04:33 MCHC 33 % (30-34) 12/09/18 04:33 RDW 17.2 % (13.2-15.2) H 12/09/18 04:33 Plt Count 228 K/mm3 (140-440) 12/09/18 04:33 Lymph % (Auto) 37.8 % (13.4-35.0) H 12/09/18 04:33 [place] % (Auto) 7.3 % (0.0-7.3) 12/09/18 04:33 Eos % (Auto) 1.5 % (0.0-4.3) 12/09/18 04:33 Baso % (Auto) 0.2 % (0.0-1.8) 12/09/18 04:33 Lymph # 2.2 K/mm3 (1.2-5.4) 12/09/18 04:33 [place] # 0.4 K/mm3 (0.0-0.8) 12/09/18 04:33 Eos # 0.1 K/mm3 (0.0-0.4) 12/09/18 04:33 Baso # 0.0 K/mm3 (0.0-0.1) 12/09/18 04:33 Seg Neutrophils % 53.2 % (40.0-70.0) 12/09/18 04:33 Seg Neutrophils # 3.1 K/mm3 (1.8-7.7) 12/09/18 04:33 Sodium 141 mmol/L (137-145) 12/09/18 04:33 Potassium 3.5 mmol/L (3.6-5.0) L 12/09/18 04:33 Chloride 103.1 mmol/L (98-107) 12/09/18 04:33 Carbon Dioxide 28 mmol/L (22-30) 12/09/18 04:33 13 mmol/L 12/09/18 04:33 BUN 8 mg/dL (7-17) 12/09/18 04:33 0.8 mg/dL (0.7-1.2) 12/09/18 04:33 Estimated GFR > 60 ml/min 12/09/18 04:33 10 % 12/09/18 04:33 Glucose 104 mg/dL (65-100) H 12/09/18 04:33 POC Glucose 112 (70-105) H 12/09/18 07:44 Calcium 8.9 mg/dL (8.4-10.2) 12/09/18 04:33 0.20 mg/dL (0.1-1.2) 12/07/18 02:57 AST 20 units/L (5-40) 12/07/18 02:57 ALT 18 units/L (7-56) 12/07/18 02:57 78 units/L (35-129) 12/07/18 02:57 6.3 g/dL (6.3-8.2) 12/07/18 02:57 3.6 g/dL (3.9-5) L 12/07/18 02:57 1.3 % 12/07/18 02:57 Straw (Yellow) 12/07/18 03:56 Clear (Clear) 12/07/18 03:56 5.0 (5.0-7.0) 12/07/18 03:56 Ur Specific [place] 1.006 (1.003-1.030) 12/07/18 03:56 <15 mg/dl mg/dL (Negative) 12/07/18 03:56 Neg mg/dL (Negative) 12/07/18 03:56 Neg mg/dL (Negative) 12/07/18 03:56 Neg (Negative) 12/07/18 03:56 Neg (Negative) 12/07/18 03:56 Neg (Negative) 12/07/18 03:56 < 2.0 mg/dL (<2.0) 12/07/18 03:56 Ur Leukocyte Esterase Neg (Negative) 12/07/18 03:56 1.0 /HPF (0.0-6.0) 12/07/18 03:56 3.0 /HPF (0.0-6.0) 12/07/18 03:56 U Epithel Cells (Auto) 1.0 /HPF (0-13.0) 12/07/18 03:56 1+ /HPF (Negative) 12/07/18 03:56 Hyaline Casts 17 /LPF 12/07/18 03:56 Few /HPF 12/07/18 03:56 Salicylates < 0.3 mg/dL (2.8-20.0) L 12/07/18 02:57 Presumptive negative 12/07/18 03:56 Presumptive negative 12/07/18 03:56 Acetaminophen < 5.0 ug/mL (10.0-30.0) L 12/07/18 02:57 Ur Barbiturates Screen Presumptive negative 12/07/18 03:56 Ur Phencyclidine Scrn Presumptive negative 12/07/18 03:56 Ur Amphetamines Screen Presumptive negative 12/07/18 03:56 U Benzodiazepines Scrn Presumptive negative 12/07/18 03:56 [place] 0.1 mmol/L (0.0-1.2) 12/07/18 02:57 Presumptive negative 12/07/18 03:56 U Marijuana (THC) Screen Presumptive negative 12/07/18 03:56 Disclamer 12/07/18 03:56 Plasma/Serum Alcohol 0.17 % (0-0.07) H 12/07/18 02:57 Active Medications - Current Medications Current Medications: Generic Name Dose Route Start Last Admin Trade Name Freq PRN Reason Stop Dose Admin Abacavir Sulfate 600 mg 12/08/18 14:00 12/09/18 09:57 Ziagen PO 600 mg DAILY DEQUAN Administration Acetaminophen 650 mg 12/07/18 05:28 Tylenol PO Q4H PRN Pain MILD(1-3)/Fever >100.5/BLUE Amlodipine Besylate 5 mg 12/07/18 21:15 12/09/18 09:56 Norvasc PO 5 mg QDAY DEQUAN Administration Atorvastatin Calcium 40 mg 12/07/18 22:00 12/08/18 21:55 Lipitor PO 40 mg QHS DEQUAN Administration Dextrose 50 ml 12/07/18 06:55 D50w (25gm) Syringe IV PRN PRN Hypoglycemia Hydralazine HCl 20 mg 12/08/18 23:00 12/09/18 00:02 Apresoline IV 20 mg Q4H PRN Administration Blood Pressure Hydrochlorothiazide 25 mg 12/08/18 10:00 12/09/18 09:56 Hctz PO 25 mg QDAY DEQUAN Administration Insulin Human Regular 0 units 12/07/18 07:30 12/09/18 09:54 Humulin R SUB-Q Not Given ACHS [facility] Protocol Lamivudine 300 mg 12/08/18 14:00 12/09/18 09:57 Epivir PO 300 mg DAILY DEQUAN Administration Losartan Potassium 100 mg 12/07/18 21:15 12/09/18 09:56 Cozaar PO 100 mg DAILY DEQUAN Administration Magnesium Hydroxide 30 ml 12/07/18 05:28 Milk Of Magnesia PO Q4H PRN Constipation Metoclopramide HCl 10 mg 12/07/18 05:28 Reglan IV Q6H PRN Nausea And Vomiting Ondansetron HCl 4 mg 12/07/18 05:28 Zofran IV Q8H PRN Nausea And Vomiting Sodium Chloride 10 ml 12/07/18 10:00 12/08/18 21:56 Sodium Chloride Flush Syringe 10 Ml IV 10 ml BID DEQUAN Administration Sodium Chloride 10 ml 12/07/18 05:28 12/09/18 00:02 Sodium Chloride Flush Syringe 10 Ml IV 10 ml PRN PRN Administration LINE FLUSH Nutrition/Malnutrition Assess - Dietary Evaluation Nutrition/Malnutrition Findings: Nutrition Notes Start: 12/07/18 12:49 Freq: Status: Active Protocol: Document 12/07/18 12:49 SONIA (Rec: 12/07/18 12:52 SONIA [id number] [email or web address]) Nutrition Notes Need for Assessment generated from: MD Order,Education Initial or Follow up Brief Note Current Diagnosis Diabetes,Hypertension Other Pertinent Diagnosis Suicide attempt, Depression, HIV Current Diet Cardiac Labs/Tests K 3.3 Cr 1.3 Pertinent Medications reviewed Subjective/Other Information RD consulted for diet education. BP is WNL and BS range 105-120 since admission. Nutrition Intervention Follow-Up By: 12/11/18 Additional Comments F/U: intakes
--- NOTE | 2018-12-09 14:02 | Progress Note ---
Subjective - Reason for Consult Consult date: 12/09/18 Reason for consult: Psychiatry Follow-up - Chief Complaint Chief complaint: "I made a big mistake" 68 year old female brought in by EMS status post suicide attempt via overdose of approx 15-20x Trazodone pills. Today the patient was calm and cooperative during the assessment. She stated that she made a ?big mistake" when she ingested several Trazodone pills. She stated that she was "stressed out." She stated, "It's another way I could have handled my situation." She denies SI/HI's and AVH's. Mental Status Exam - Vital signs Last Vital Signs Temp 98.1 F 12/09/18 04:25 Pulse 73 12/09/18 11:00 Resp 17 12/09/18 04:25 BP 139/55 12/09/18 09:56 Pulse Ox 97 12/09/18 04:25 - Exam Narrative exam: MSE: Appearance: calm, cooperative Behavior: regular eye contact Speech: regular rate and tone Mood: "okay" Affect: congruent to mood Thought Process: linear Thought Content: denies SI/HI's and AVH's Motor Activity: ambulatory Cognition: A/O x3 Insight: fair Judgment: fair Assessment and Plan Impression: MDD. Unspecified Anxiety DO. Today the patient was calm and cooperative during the assessment. QTc 470. DDx: R/O Alcohol Use DO Recommendations/Plan: Continue 1013. Discussed risks/benefits of SSRI's. The patient want to wait 24 hours before deciding if she want to take psy medication. Dispo: Once the patient is medically clear, proper dispo will be determined. Will staff with Dr.S Perez
[2018-12-10] MEDS: HumuLIN R SUB-Q SCH ×2 (07:30→11:30)
--- NOTE | 2018-12-10 09:01 | Progress Note ---
Assessment and Plan Assessment and plan: Suicide attempt. Continue per psychiatry. Overdose on - trazodone 50mg. Continue 1013 and transfer to inpatient psych per psychiatrist recommendations Hypokalemia. Repleted potassium. Follow BMP. Major depression. HIV. Diabetes mellitus type 2. Accu-Cheks and sliding scale insulin. Hypertension. Continue medications. Obesity. Patient will be counseled on diet, exercise and lifestyle m odifications. Hospitalist Physical - Constitutional Vitals: Temp Pulse Resp BP Pulse Ox 98.1 F 68 20 155/72 97 12/10/18 08:44 12/10/18 08:44 12/10/18 08:44 12/10/18 08:44 12/10/18 08:44 General appearance: Present: no acute distress Results - Labs CBC & Chem 7: 12/09/18 04:33 12/10/18 09:02 Labs: Laboratory Last Values WBC 5.9 K/mm3 (4.5-11.0) 12/09/18 04:33 RBC 3.70 M/mm3 (3.65-5.03) 12/09/18 04:33 Hgb 11.3 gm/dl (10.1-14.3) 12/09/18 04:33 Hct 34.0 % (30.3-42.9) 12/09/18 04:33 MCV 92 fl (79-97) 12/09/18 04:33 MCH 31 pg (28-32) 12/09/18 04:33 MCHC 33 % (30-34) 12/09/18 04:33 RDW 17.2 % (13.2-15.2) H 12/09/18 04:33 Plt Count 228 K/mm3 (140-440) 12/09/18 04:33 Lymph % (Auto) 37.8 % (13.4-35.0) H 12/09/18 04:33 [place] % (Auto) 7.3 % (0.0-7.3) 12/09/18 04:33 Eos % (Auto) 1.5 % (0.0-4.3) 12/09/18 04:33 Baso % (Auto) 0.2 % (0.0-1.8) 12/09/18 04:33 Lymph # 2.2 K/mm3 (1.2-5.4) 12/09/18 04:33 [place] # 0.4 K/mm3 (0.0-0.8) 12/09/18 04:33 Eos # 0.1 K/mm3 (0.0-0.4) 12/09/18 04:33 Baso # 0.0 K/mm3 (0.0-0.1) 12/09/18 04:33 Seg Neutrophils % 53.2 % (40.0-70.0) 12/09/18 04:33 Seg Neutrophils # 3.1 K/mm3 (1.8-7.7) 12/09/18 04:33 Sodium 141 mmol/L (137-145) 12/09/18 04:33 Potassium 3.5 mmol/L (3.6-5.0) L 12/09/18 04:33 Chloride 103.1 mmol/L (98-107) 12/09/18 04:33 Carbon Dioxide 28 mmol/L (22-30) 12/09/18 04:33 13 mmol/L 12/09/18 04:33 BUN 8 mg/dL (7-17) 12/09/18 04:33 0.8 mg/dL (0.7-1.2) 12/09/18 04:33 Estimated GFR > 60 ml/min 12/09/18 04:33 10 % 12/09/18 04:33 Glucose 104 mg/dL (65-100) H 12/09/18 04:33 POC Glucose 131 (70-105) H 12/10/18 07:57 Calcium 8.9 mg/dL (8.4-10.2) 12/09/18 04:33 0.20 mg/dL (0.1-1.2) 12/07/18 02:57 AST 20 units/L (5-40) 12/07/18 02:57 ALT 18 units/L (7-56) 12/07/18 02:57 78 units/L (35-129) 12/07/18 02:57 6.3 g/dL (6.3-8.2) 12/07/18 02:57 3.6 g/dL (3.9-5) L 12/07/18 02:57 1.3 % 12/07/18 02:57 Straw (Yellow) 12/07/18 03:56 Clear (Clear) 12/07/18 03:56 5.0 (5.0-7.0) 12/07/18 03:56 Ur Specific [place] 1.006 (1.003-1.030) 12/07/18 03:56 <15 mg/dl mg/dL (Negative) 12/07/18 03:56 Neg mg/dL (Negative) 12/07/18 03:56 Neg mg/dL (Negative) 12/07/18 03:56 Neg (Negative) 12/07/18 03:56 Neg (Negative) 12/07/18 03:56 Neg (Negative) 12/07/18 03:56 < 2.0 mg/dL (<2.0) 12/07/18 03:56 Ur Leukocyte Esterase Neg (Negative) 12/07/18 03:56 1.0 /HPF (0.0-6.0) 12/07/18 03:56 3.0 /HPF (0.0-6.0) 12/07/18 03:56 U Epithel Cells (Auto) 1.0 /HPF (0-13.0) 12/07/18 03:56 1+ /HPF (Negative) 12/07/18 03:56 Hyaline Casts 17 /LPF 12/07/18 03:56 Few /HPF 12/07/18 03:56 Salicylates < 0.3 mg/dL (2.8-20.0) L 12/07/18 02:57 Presumptive negative 12/07/18 03:56 Presumptive negative 12/07/18 03:56 Acetaminophen < 5.0 ug/mL (10.0-30.0) L 12/07/18 02:57 Ur Barbiturates Screen Presumptive negative 12/07/18 03:56 Ur Phencyclidine Scrn Presumptive negative 12/07/18 03:56 Ur Amphetamines Screen Presumptive negative 12/07/18 03:56 U Benzodiazepines Scrn Presumptive negative 12/07/18 03:56 [place] 0.1 mmol/L (0.0-1.2) 12/07/18 02:57 Presumptive negative 12/07/18 03:56 U Marijuana (THC) Screen Presumptive negative 12/07/18 03:56 Disclamer 12/07/18 03:56 Plasma/Serum Alcohol 0.17 % (0-0.07) H 12/07/18 02:57 Active Medications - Current Medications Current Medications: Generic Name Dose Route Start Last Admin Trade Name Freq PRN Reason Stop Dose Admin Abacavir Sulfate 600 mg 12/08/18 14:00 12/09/18 09:57 Ziagen PO 600 mg DAILY DEQUAN Administration Acetaminophen 650 mg 12/07/18 05:28 Tylenol PO Q4H PRN Pain MILD(1-3)/Fever >100.5/BLUE Amlodipine Besylate 5 mg 12/07/18 21:15 12/09/18 09:56 Norvasc PO 5 mg QDAY DEQUAN Administration Atorvastatin Calcium 40 mg 12/07/18 22:00 12/09/18 21:28 Lipitor PO 40 mg QHS DEQUAN Administration Dextrose 50 ml 12/07/18 06:55 D50w (25gm) Syringe IV PRN PRN Hypoglycemia Hydralazine HCl 20 mg 12/08/18 23:00 12/09/18 00:02 Apresoline IV 20 mg Q4H PRN Administration Blood Pressure Hydrochlorothiazide 25 mg 12/08/18 10:00 12/09/18 09:56 Hctz PO 25 mg QDAY DEQUAN Administration Insulin Human Regular 0 units 12/07/18 07:30 12/10/18 07:30 Humulin R SUB-Q Not Given ACHS [facility] Protocol Lamivudine 300 mg 12/08/18 14:00 12/09/18 09:57 Epivir PO 300 mg DAILY DEQUAN Administration Losartan Potassium 100 mg 12/07/18 21:15 12/09/18 09:56 Cozaar PO 100 mg DAILY DEQUAN Administration Magnesium Hydroxide 30 ml 12/07/18 05:28 Milk Of Magnesia PO Q4H PRN Constipation Metoclopramide HCl 10 mg 12/07/18 05:28 Reglan IV Q6H PRN Nausea And Vomiting Ondansetron HCl 4 mg 12/07/18 05:28 Zofran IV Q8H PRN Nausea And Vomiting Sodium Chloride 10 ml 12/07/18 10:00 12/09/18 21:29 Sodium Chloride Flush Syringe 10 Ml IV 10 ml BID DEQUAN Administration Sodium Chloride 10 ml 12/07/18 05:28 12/09/18 00:02 Sodium Chloride Flush Syringe 10 Ml IV 10 ml PRN PRN Administration LINE FLUSH Nutrition/Malnutrition Assess - Dietary Evaluation Nutrition/Malnutrition Findings: Nutrition Notes Start: 12/07/18 12:49 Freq: Status: Active Protocol: Document 12/07/18 12:49 SONIA (Rec: 12/07/18 12:52 SONIA [id number] [email or web address]) Nutrition Notes Need for Assessment generated from: MD Order,Education Initial or Follow up Brief Note Current Diagnosis Diabetes,Hypertension Other Pertinent Diagnosis Suicide attempt, Depression, HIV Current Diet Cardiac Labs/Tests K 3.3 Cr 1.3 Pertinent Medications reviewed Subjective/Other Information RD consulted for diet education. BP is WNL and BS range 105-120 since admission. Nutrition Intervention Follow-Up By: 12/11/18 Additional Comments F/U: intakes
[2018-12-10] MEDS: TIVICAY PO SCH (09:18)
[2018-12-10] MEDS: ZIAGEN PO SCH (09:18)
[2018-12-10] MEDS: NORVASC PO SCH (09:18)
[2018-12-10] MEDS: HCTZ PO SCH (09:18)
[2018-12-10] MEDS: EPIVIR PO SCH (09:18)
[2018-12-10] MEDS: COZAAR PO SCH (09:19)
[2018-12-10] MEDS: SODIUM CHLORIDE FLUSH SYRINGE 10 ML IV SCH (09:19)
[2018-12-10 10:07] LABS: BUN/Creatinine Ratio 11; Blood Urea Nitrogen 11 mg/dL (7-17); Calcium 9.5 mg/dL (8.4-10.2); Hemolysis Index 0
--- NOTE | 2018-12-10 10:59 | Event Note ---
Date: 12/10/18 Patient medically stable. She is medically cleared for discjarge or transfer to Psych facility.
--- NOTE | 2018-12-10 13:06 | Progress Note ---
Subjective - Reason for Consult Consult date: 12/10/18 Reason for consult: Psychiatr - Chief Complaint Chief complaint: "I'm blessed to have a good family" 68 year old female brought in by EMS status post suicide attempt via overdose of approx 15-20x Trazodone pills. Today the patient was calm and cooperative during the assessment. Per collateral information from the patient's daughter Jennifer Macario, she stated that her mother was "stressed and out of character"with her actions prior to coming to the hospital. She denies any previous suicide attempts by the patent. She stated that the patient has a support system in place once she return home. The patient denies SI/HI's and AVH's. The patient stated that her PCP provides therapy sessions. Mental Status Exam - Vital signs Last Vital Signs Temp 98.0 F 12/10/18 12:27 Pulse 79 12/10/18 12:27 Resp 20 12/10/18 12:27 BP 162/78 12/10/18 12:27 Pulse Ox 95 12/10/18 12:27 - Exam Narrative exam: MSE: Appearance: calm, cooperative Behavior: regular eye contact Speech: regular rate and tone Mood: "okay" Affect: congruent to mood Thought Process: linear Thought Content: denies SI/HI's and AVH's Motor Activity: ambulatory Cognition: A/O x3 Insight: appropriate Judgment: appropriate Assessment and Plan Impression: MDD. Unspecified Anxiety DO. Today the patient was calm and cooperative during the assessment. The patient is no threat to self. DDx: R/O Alcohol Use DO Suicide Risk Assessment I. This screening and assessment is based on information collected from the following sources: II. SUICIDE RISK SCREENING (within last 30 days): A.) Suicidal thoughts/behaviors: Yes SUICIDE RISK ASSESSMENT III. FACTORS THAT INCREASE RISK: A.) Demographic and Substance Use Factors: Yes (etoh) B.) Current/Recent Factors (within past 3 months): Psychosocial/Environmental Factors: Life Stressors Physical Illness: None Cognitive/Psychological Factors: None C.) Historical Factors: None D.) Diagnostic/Symptom/Treatment Factors: None E.) Acute Risk Factor Severity (DESC; MILD/MOD/SEVERE): Mild Other factors for this individual that increase risk: None IV. FACTORS THAT DECREASE RISK: Resilience/Protective Factors: Patient want to decrease her stress Other factors for this individual that decrease risk: Patient denies a desire to harm self V. Clinician's Formulation of Risk and Determination of level of Care: This is 68 y.o. AA female who ingested several trazodone pills prior to her arrival to the ER. She stated that her actions were unsafe. She stated that she will follow-up with outpatient psy services once discharged. Since being hospitalized the patient has consistently denied the desire to harm herself. Additionally, she has become insightful about how to better address her current issues. The patient is not impaired by substance. She is able to take care of her ADLs and is not at imminent risk of harm to self or others. Consequently, it is the opinion of the treatment team that the patient is at low risk of suicide and does not meet criteria to continue an involuntary psychiatric hold. Estimation of Imminent Risk: Low due to the above explanation. Determination of Level of Care based on Suicide Risk: Outpatient follow-up. Narrative description of clinical reasoning. Given the fact that the patient is willing to engage in outpatient psy services and has a supportive network at home, it is reasonable to expect that the patient will seek services. She is not impulsive and does not have any risk factors to increase the likelihood of her impulsive behavior. Therefore, it is reasonable to expect that the patient will engage in outpatient psy services which will reduce further unsafe behaviors. . Plan and Interventions based on Suicide Risk: This patient will likely be stepped down to an outpatient mental health center in the community upon discharge and follow-up within 7 days of her discharge from the hospital. VII. Discharge/After Hours Support Plan: Patient can return back to the ER, call 911 or crisis line if symptoms of depression, anxiety, suicidality return. Recommendations/Plan: Rescind 1013. Discussed risks/benefits of SSRI's, the warren ent prefer talk therapy at this time. Discussed generalized coping skills with the patient, she verbalized understanding. Safety Contract completed with the patient. Dispo: The patient will be given a referral for local mental health facilities in her local area that provide therapy sessions. Also, she can follow up with her PCP who provide therapy session as well. Staffed with Dr.S Perez
[2018-12-10 14:22] VITALS: BP 145/73
--- NOTE | 2018-12-10 14:22 | Discharge Summary ---
Providers - Providers Date of Admission: 12/07/18 04:58 Date of discharge: 12/10/18 Attending physician: WALDO JIM 12/07/18 02:45 Consult to Mental Health [CONS] Urgent Reason For Exam: suicidal attempt Place consult to:: [facility] Notified:: y 12/07/18 06:55 Consult to Dietitian/Nutrition [CONS] Routine Physician Instructions: Reason For Exam: Reason for Consult: Diet education Primary care physician: JOHN CRAWFORD Hospitalization Condition: Fair Hospital course: Patient is a 68-year-old female with diabetes, hypertension, HIV infection, obesity, depression who was brought to the ER by EMS after taking (15-20) 50mg pills of Trazodone, about 4 hours prior to arrival. Per EMS pt took the pills in a suicidal attempt, she states that she didn't want to be here anymore per family. On arrival to the ER patient was somnolent, but was able to answers to questions.. Psychiatry was consulted for evaluation, pt was placed in 1013 and admitted for further monitoring. She was evaluated by Psych and stayed on 1013 status for several days. She was re-evaluated on 12/10/[address] Zoë Perez, Psychiatrist and 1013 was rescinded. She was discharged home to follow with out patient Psychiatry. Total time spent on discharge, 35 mins Disposition: DC-01 TO HOME OR SELFCARE - Discharge Diagnoses (1) Toxic metabolic encephalopathy Status: Acute Comment: Present on admission (2) Overdose of trazodone Status: Acute (3) Suicidal behavior with attempted self-injury Status: Acute (4) Hypertension Status: Chronic Qualifiers: Hypertension type: essential hypertension Qualified Code(s): I10 - Essential (primary) hypertension (5) HTN (hypertension) Status: Chronic (6) HIV (human immunodeficiency virus infection) Status: Chronic (7) Diabetes Status: Acute Qualifiers: Diabetes mellitus type: type 2 Core Measure Documentation - Palliative Care Palliative Care/ Comfort Measures: Not Applicable - Core Measures Any of the following diagnoses?: none Exam - Constitutional Vitals: Temp Pulse Resp BP Pulse Ox 98.0 F 79 20 162/78 95 12/10/18 12:27 12/10/18 12:27 12/10/18 12:27 12/10/18 12:27 12/10/18 12:27 Plan Diet: low fat, low cholesterol, low salt Additional Instructions: 1.Follow up with PCP in 1 week. 2.Follow up with [facility], for Psych in 1 week. Follow up with: ANDREW ELIZABETH [Referring] - 3-5 Days Prescriptions: amLODIPine [Norvasc] 10 mg PO DAILY #30 tab
== END 2018-12-10 16:36 | disposition home or self-care (01) | DRG 917 ==
LOC: SUATTDRO 02:28 → ED 02:28 → 4A 04:58
PROVIDERS: ADMIT Internal Medicine; ATTEND Internal Medicine
DX: T43.211A Poisoning by selective serotonin and norepinephrine reuptake inhibitors, accidental (unintentional), initial encounter (principal); G92 Toxic encephalopathy; F32.2 Major depressive disorder, single episode, severe without psychotic features; B20 Human immunodeficiency virus [HIV] disease; T14.91XA Suicide attempt, initial encounter; E87.6 Hypokalemia; F41.9 Anxiety disorder, unspecified; I10 Essential (primary) hypertension; E66.9 Obesity, unspecified; M19.90 Unspecified osteoarthritis, unspecified site; Z96.642 Presence of left artificial hip joint; E11.8 Type 2 diabetes mellitus with unspecified complications; Y92.89 Other specified places as the place of occurrence of the external cause; Z68.36 Body mass index [BMI] 36.0-36.9, adult; Z88.2 Allergy status to sulfonamides; Z79.899 Other long term (current) drug therapy; Z90.710 Acquired absence of both cervix and uterus; Z79.82 Long term (current) use of aspirin
CPT/HCPCS: 36415; 80048; 80053; 80178; 80307; 80320; 81001; 82962; 83735; 84100; 85025; 93005; 93010; 96360; G0378; A9270-GY; G0480; J0360; J7030

== ENCOUNTER 2019-04-17 01:27 | Emergency (ER) | payer MEDICARE ==
[2019-04-17 01:49] VITALS: BP 164/83
[2019-04-17] MEDS ORDERED: SODIUM CHLORIDE 0.9% 1000 ML 1,000 ML IV ONE (01:54)
[2019-04-17] MEDS ORDERED: HYDROmorphone 1 MG/1 ML INJ IV ONE (01:55)
[2019-04-17] MEDS ORDERED: ONDANSETRON 4 MG/2 ML INJ IV ONE (01:55)
--- NOTE | 2019-04-17 02:06 | Emergency Department Report ---
ED Abdominal Pain HPI - General Chief Complaint: Abdominal Pain Stated Complaint: BACK/ABD PAIN/EMESIS Time Seen by Provider: 04/17/19 01:54 Source: patient Mode of arrival: Wheelchair Limitations: Physical Limitation - History of Present Illness Initial Comments: 68-year-old -[place]ian female presents to the emergency room complaining of left flank back pain and left lower quadrant abdominal pain. Patient reports this been going on for 2 days. Patient states that her urine has a strong smell. She reports that she started having diarrhea today. Patient denies any fever or chills. Patient reports she's had her gallbladder out. She reports the pain as a 10 out of 10 and she cannot get comfortable. Nothing makes the pain better and nothing makes the pain worse. MD Complaint: abdominal pain Onset/Timin -: days(s) Location: LLQ, L flank Radiation: LLQ Severity: severe Severity scale (0 -10): 10 Quality: cramping, stabbing, sharp Consistency: constant Improves With: nothing Worsens With: nothing Associated Symptoms: nausea, vomiting, diarrhea - Related Data Home Medications Medication Instructions Recorded Confirmed Last Taken Abacavir/Dolutegravir/Lamivudi 1 tab PO QDAY 05/05/15 12/08/18 12/07/18 [Triumeq (Nf)] Abacavir/Dolutegravir/Lamivudi 1 tab PO DAILY 12/07/18 12/09/18 12/08/18 [Triumeq 600-50-300 mg Tablet] Losartan-Hctz 100-25 mg Tab 100 mg PO DAILY 12/07/18 12/07/18 1 Day Ago ~12/06/18 glipiZIDE [Glucotrol] 5 mg PO QHS 12/07/18 12/07/18 1 Day Ago ~12/06/18 Previous Rx's Medication Instructions Recorded Last Taken Type AtorvaSTATin [Lipitor] 40 mg PO QHS tablet 12/10/18 Unknown Rx amLODIPine [Norvasc] 10 mg PO DAILY #30 tab 12/10/18 Unknown Rx HYDROcodone/APAP 5-325 [[place] 1 each PO Q6HR PRN #12 tablet 04/17/19 Unknown Rx 5/325] Ketorolac [Toradol] 10 mg PO Q6H PRN #20 tablet 04/17/19 Unknown Rx Tamsulosin [Flomax] 0.4 mg PO QDAY 5 Days #5 cap 04/17/19 Unknown Rx Allergies Allergy/AdvReac Type Severity Reaction Status Date / Time Sulfa (Sulfonamide Allergy Itching Verified 05/05/15 16:59 Antibiotics) ED Review of Systems ROS: Stated complaint: BACK/ABD PAIN/EMESIS Other details as noted in HPI ED Past Medical Hx - Past Medical History Previous Medical History?: Yes Hx Hypertension: Yes Hx Heart Attack/AMI: No Hx Congestive Heart Failure: No Hx Diabetes: Yes Hx Deep Vein Thrombosis: No Hx Liver Disease: No Hx Arthritis: Yes Hx HIV: Yes - Surgical History Past Surgical History?: Yes Hx Coronary Stent: No Hx Open Heart Surgery: No Hx Pacemaker: No Hx Internal Defibrillator: No Hx Cholecystectomy: Yes Hx Appendectomy: No Hx Breast Surgery: No Additional Surgical History: hysterectomy. left hip replacement - Social History Smoking Status: Never Smoker Substance Use Type: None - Medications Home Medications: Home Medications Medication Instructions Recorded Confirmed Last Taken Type Abacavir/Dolutegravir/Lamivudi 1 tab PO QDAY 05/05/15 12/08/18 12/07/18 History [Triumeq (Nf)] Abacavir/Dolutegravir/Lamivudi 1 tab PO DAILY 12/07/18 12/09/18 12/08/18 History [Triumeq 600-50-300 mg Tablet] Losartan-Hctz 100-25 mg Tab 100 mg PO DAILY 12/07/18 12/07/18 1 Day Ago History ~12/06/18 glipiZIDE [Glucotrol] 5 mg PO QHS 12/07/18 12/07/18 1 Day Ago History ~12/06/18 AtorvaSTATin [Lipitor] 40 mg PO QHS tablet 12/10/18 Unknown Rx amLODIPine [Norvasc] 10 mg PO DAILY #30 tab 12/10/18 Unknown Rx HYDROcodone/APAP 5-325 [[place] 1 each PO Q6HR PRN #12 tablet 04/17/19 Unknown Rx 5/325] Ketorolac [Toradol] 10 mg PO Q6H PRN #20 tablet 04/17/19 Unknown Rx Tamsulosin [Flomax] 0.4 mg PO QDAY 5 Days #5 cap 04/17/19 Unknown Rx ED Physical Exam - General Limitations: Physical Limitation General appearance: alert, other (appears to be in pain) - Head Head exam: Present: atraumatic, normocephalic - Eye Eye exam: Present: normal appearance - ENT ENT exam: Present: mucous membranes moist - Neck Neck exam: Present: normal inspection - Respiratory Respiratory exam: Present: normal lung sounds bilaterally. Absent: respiratory distress - Cardiovascular Cardiovascular Exam: Present: regular rate, normal rhythm. Absent: systolic murmur, diastolic murmur, rubs, gallop - GI/Abdominal GI/Abdominal exam: Present: soft, tenderness (left lower quadrant). Absent: distended - Back Exam Back exam: Present: CVA tenderness (L) - Neurological Exam Neurological exam: Present: alert, oriented X3 - Psychiatric Psychiatric exam: Present: normal affect, normal mood - Skin Skin exam: Present: warm, dry, intact, normal color. Absent: rash ED Course Vital Signs 04/17/19 01:42 Temperature 98.2 F Pulse Rate 86 Respiratory 22 Rate Blood Pressure 164/83 O2 Sat by Pulse 100 Oximetry ED Medical Decision Making - Radiology Data Radiology results: report reviewed Patient: LENNIE PERSAUD MR# : [id number] : 1950 Acct:[id number] Age/Sex: 68 / F ADM Date: 04/17/19 Loc: ED Attending Dr: Ordering Physician: SHEREE BRENNAN Date of Service: 04/17/19 Procedure(s): CT abdomen pelvis wo con Accession Number(s): [id number] cc: SHEREE BRENNAN CT abdomen pelvis wo con INDICATION: back pain and lower abd pain. TECHNIQUE: All CT scans at this location are performed using the following dose modulation technique: Automated exposure control. CONTRAST: None. COMPARISON: None available. CT ABDOMEN: The parenchymal organs are unremarkable in appearance other than 2 small nonobstructing stones at the lower pole of the right kidney with the larger measuring 3 mm. Negative for abdominal mass, fluid or inflammation. The bowel is not dilated or thickened. CT PELVIS: The appendix contains high density material but is not thickened. Negative for mass, fluid or inflammation. Status post previous hysterectomy. A left adnexal cyst measures 3.1 cm. Artifact from a left hip prosthesis obscures the deep pelvis. IMPRESSION: 1. Negative for obstruction or localized inflammation. 2. Small nonobstructing right renal stones. 3. 3.1 cm left adnexal cyst. Signer Name: Oscar Bolivar MD Signed: 04/17/2019 3:31 AM Workstation Name: [id number] Transcribed By: ES Dictated By: Oscar Bolivar MD Electronically Authenticated By: Oscar Bolivar MD Signed Date/Time: 04/17/19330 DD/ 2 TD/TT: - Medical Decision Making 68-year-old -Armenian female presents to the emergency room complaining of left flank back pain and left lower quadrant abdominal pain. Patient reports this been going on for 2 days. Patient states that her urine has a strong smell. She reports that she started having diarrhea today. Patient denies any fever or chills. Patient reports she's had her gallbladder out. She reports the pain as a 10 out of 10 and she cannot get comfortable. Nothing makes the pa in better and nothing makes the pain worse. CT, urinalysis, IV, normal saline, Dilaudid at 1 mg, Toradol 15 mg Critical care attestation.: If time is entered above; I have spent that time in minutes in the direct care of this critically ill patient, excluding procedure time. ED Disposition Clinical Impression: Kidney stones Disposition: DC-01 TO HOME OR SELFCARE Is pt being admited?: No Does the pt Need Aspirin: No Condition: Stable Instructions: Abdominal Pain (ED) Prescriptions: Tamsulosin [Flomax] 0.4 mg PO QDAY 5 Days #5 cap HYDROcodone/APAP 5-325 [[place] 5/325] 1 each PO Q6HR PRN #12 tablet PRN Reason: Pain Ketorolac [Toradol] 10 mg PO Q6H PRN #20 tablet PRN Reason: Pain Referrals: PRIMARY CARE, [Primary Care Provider] - 3-5 Days FABY HYATT MD [Staff Physician] - 3-5 Days Forms: Work/School Release Form(ED), Accompanied Note
[2019-04-17] MEDS ORDERED: KETOROLAC 30 MG/1 ML INJ IV ONE (02:07)
--- NOTE | 2019-04-17 03:35 | Cat Scan Report ---
CT abdomen pelvis wo con INDICATION: back pain and lower abd pain. TECHNIQUE: All CT scans at this location are performed using the following dose modulation technique: Automated exposure control. CONTRAST: None. COMPARISON: None available. CT ABDOMEN: The parenchymal organs are unremarkable in appearance other than 2 small nonobstructing s tones at the lower pole of the right kidney with the larger measuring 3 mm. Negative for abdominal ma ss, fluid or inflammation. The bowel is not dilated or thickened. CT PELVIS: The appendix contains high density material but is not thickened. Negative for mass, fluid or inflammation. Status post previous hysterectomy. A left adnexal cyst measures 3.1 cm. Artifact from a left hip prosthesis obscures the deep pelvis. IMPRESSION: 1. Negative for obstruction or localized inflammation. 2. Small nonobstructing right renal stones. 3. 3.1 cm left adnexal cyst. Signer Name: Oscar Bolivar MD Signed: 04/17/2019 3:31 AM Workstation Name: [id number]
[2019-04-17 04:47] LABS: Bacteria,Urine 1+ /HPF (Negative); Bilirubin,Urine NEG (Negative); Blood,Urine SM (Negative); Color,Urine Yellow (Yellow); Mucus,Urine FEW /HPF; Protein,Urine <15 mg/dL mg/dL (Negative); Urobilinogen,Urine < 2.0 mg/dL (<2.0)
== END 2019-04-17 05:44 | disposition home or self-care (01) ==
LOC: ED 01:27
DX: N20.0 Calculus of kidney (principal); I10 Essential (primary) hypertension; E11.9 Type 2 diabetes mellitus without complications; M19.90 Unspecified osteoarthritis, unspecified site; Z90.710 Acquired absence of both cervix and uterus; Z90.49 Acquired absence of other specified parts of digestive tract; Z88.2 Allergy status to sulfonamides; Z79.899 Other long term (current) drug therapy; Z96.642 Presence of left artificial hip joint
CPT/HCPCS: 74176; 81001; 96361; 96374; 96375; 99284; J1170; J1885; J2405; J7030